=== PATIENT | female | born 1955 | race Caucasian/White ===

== ENCOUNTER 2023-03-28 18:17 | Emergency (ER) | payer MEDICARE, SELFPAY ==
[2023-03-28 18:28] VITALS: BP 160/78; PULSE 52; RESP 16; TEMP 36.5; O2SAT 100
--- NOTE | 2023-03-28 18:32 | ED.WOUNDLAC ---
HPI - Wound/Laceration General Chief Complaint: Wound/Laceration Stated Complaint: Animal scratch Time Seen by Provider: 03/28/23 18:32 Source: patient, RN notes reviewed and old records reviewed Mode of arrival: ambulatory Limitations: no limitations History of Present Illness HPI narrative: 67-year-old female presents to the [facility] with cat scratch from 2 days ago. States that is her house cat, up-to-date on immunizations. Her last Tdap was a year ago States she has been using her [facility] spray as well as Neosporin Related Data Home Medications Medication Instructions Recorded Confirmed ergocalciferol (vitamin D2) 1,250 1,250 mcg PO WEEKLY 03/28/23 03/28/23 mcg (50,000 unit) capsule levothyroxine 75 mcg tablet 75 mcg PO DAILY 03/28/23 03/28/23 (Synthroid) Allergies Allergy/AdvReac Type Severity Reaction Status Date / Time No Known Allergies Allergy Verified 03/28/23 18:40 Review of Systems Review of Systems: All systems reviewed & are unremarkable except as noted in HPI and below Constitutional: Constitutional: Reports no additional constitutional complaints Eyes: Eyes: Reports no additional eye complaints ENT: Reports system reviewed and no additional complaints, except as documented Cardiovascular: Cardiovascular: Reports no additional cardiovascular complaints, Denies chest pain and Denies dyspnea Respiratory: Respiratory: Reports no additional respiratory complaints, Denies chest congestion, Denies cough and Denies dyspnea Gastrointestinal: Gastrointestinal: Reports no additional gastrointestinal complaints, Denies abdominal pain, Denies nausea and Denies vomiting Musculoskeletal: Musculoskeletal: Reports no additional musculoskeletal complaints Integumentary/Breasts: Skin/Breast: Reports as per HPI and Reports wounds Neurologic: Reports system reviewed and no additional complaints, except as documented Psychiatric: Psychiatric: Reports no additional psychiatric complaints Allergic/Immunologic: Allergic/Immunologic: Reports no additional allergic/immunologic complaints PMFSH Past Medical History Medical History (Updated 03/28/23 @ 20:19 by Charis Grace APRN) Lymphoma Comments At the time of my signature, I reviewed and agree with the nursing past medical, surgical, social, and family history. There is no relevant family history pertinent to the patient complaint. Exam Const: General: cooperative, healthy appearing, comfortable, no acute distress, well developed, alert and well nourished Nutritional Appearance: well nourished Orientation/consciousness: patient oriented x3 Limitations: no limitations HENMT: Head: normal to inspection Ears: hearing grossly normal bilaterally and external ears normal Face/Nose/Sinus: Normal external nose present, Normal nares present, Normal nasal mucous membranes and turbinates present, normal facial exam and face symmetric Face and sinus: normal facial exam and face symmetric Eyes: General: appearance normal, both eyes and all related structures Alignment and Position: alignment normal Periorbital: periorbital findings normal Pupils: Equal, round and reactive pupils present EOM: EOMs intact bilaterally Neck: Neck: normal visual inspection, full ROM, no lymphadenopathy and no meningeal signs Chest: Chest palpation & inspection: normal inspection of the chest Resp: Effort & Inspection: normal respiratory effort and able to speak in complete sentences Auscultation: clear to auscultation bilaterally, no crackles, no rales, no rhonchi and no wheezes Cardio: Rate: regular rate Rhythm: regular rhythm Back/Spine/Pelvis: Cervical Spine: cervical ROM normal Skin: General skin exam: normal color and no rashes or lesions noted Lesions: no lesions Rashes: no rashes Other: Scratch and puncture wound noted to right mid forearm dorsal aspect. Scratches 5 cm puncture wound is just distal to scratch. Erythema of surrounding scrat
== END 2023-03-28 18:47 | disposition home or self-care (01) ==
PROVIDERS: Emergency Provider Nurse Practitioner
DX: S50.811A Abrasion of right forearm, initial encounter (principal); W55.03XA Scratched by cat, initial encounter; Z85.72 Personal history of non-Hodgkin lymphomas
CPT/HCPCS: 99213; G0463

== ENCOUNTER 2023-10-03 12:00 | Emergency (ER) | payer MEDICARE, SELFPAY ==
[2023-10-03 12:13] VITALS: BP 168/68; PULSE 57; RESP 16; TEMP 36.4; O2SAT 100
[2023-10-03 12:15] VITALS: BP 168/68; PULSE 57; RESP 16; TEMP 36.4; O2SAT 100
--- NOTE | 2023-10-03 12:28 | ED.EYEPROB ---
HPI - Eye Problem General Chief complaint: Eye Problems Stated complaint: EYE REDNESS/FACIAL INFECTION Source: patient, family, RN notes reviewed and old records reviewed Mode of arrival: ambulatory Limitations: no limitations History of Present Illness HPI Narrative: 67 year old female accompanied by daughter with complaints of right ear and pressure right side of her facial discomfort increased since yesterday. Patient reports that she woke up today and she noted blood shot eye with no visual changes Patient reports that she has not been feeling well for the past week or so, has thick white sinus mucous , discomfort to her right ear going to jaw. Patient reports that she has been taking some Luz for her symptoms. Patient reports that she is worn out she has been caring for her who had a heart transplant a year ago who has had many other problems and hospitalization since transplant. Patient reports that she has been sneezing a lot MD chief complaint: other (right ear pain and right facial pressure, blood shot right eye) Onset (ago): week(s) (at least a week with increased sinus drainage pressure to right ear and radiating to jaw.) Eye Symptoms: redness (blood shot eye right eye) Severity scale (1-10): 4 Treatments Prior to Arrival: other (Luz) Related Data Home Medications Medication Instructions Recorded Confirmed ergocalciferol (vitamin D2) 1,250 1,250 mcg PO WEEKLY 03/28/23 10/03/23 mcg (50,000 unit) capsule levothyroxine 75 mcg tablet 75 mcg PO DAILY 03/28/23 10/03/23 (Synthroid) mecobalamin (vitamin B12) 500 mcg See Rx Instructions .Route .COMPLEX 10/03/23 10/03/23 chewable tablet Allergies Allergy/AdvReac Type Severity Reaction Status Date / Time Sulfa (Sulfonamide Allergy Rash Verified 10/03/23 12:13 Antibiotics) Review of Systems Review of Systems: CONSTITUTIONAL: Denies malaise, chills, sweats, or fever. EYES: Denies visual changes, redness, or discharge. ENT: Reports rhinorrhea, congestion, right sinus pain, right otalgia and no sore throat. CARDIOVASCULAR: Denies chest pain, palpitations, or edema. RESPIRATORY: Reports no cough.? Denies dyspnea. GASTROINTESTINAL: Denies abdominal pain, nausea, vomiting, diarrhea SKIN: Denies rash or itching. MUSCULOSKELETAL: Denies myalgia. NEUROLOGIC: Denies headache. All systems reviewed & are unremarkable except as noted in HPI and below PMFSH Past Medical History Medical History (Updated 10/03/23 @ 16:15 by Kathie Yun NP) Lymphoma Non-Hodgkin lymphoma Surgical History Surgical History (Updated 10/03/23 @ 16:17 by Kathie Yun NP) H/O neck surgery History of cataract surgery bilateral History of cholecystectomy History of left knee replacement History of tubal ligation Social History Social History (Updated 10/03/23 @ 16:19 by Kathie Yun NP) Smoking status: Never smoker Substance use type: does not use Living arrangements: with family Gender identity (if verbalized by the patient): Female Comments At time of signature, agree with nursing past medical, surgical, social and family history. There is no relevant family history pertinent to the presenting complaint Exam Narrative: GENERAL: Well-appearing, well-nourished, and in no acute distress. HEAD: Normocephalic EYES: PERRLA, conjunctivae clear ENT: Nares clear, turbinates edematous and erythematous, white thick mucous discharge. Mucous membranes moist. Right ear required irrigation with some wax remaining, bilateral TM's pearly hyde with dull light reflex; no tragal tenderness. Oropharynx erythematous without lesions. Tonsils not enlarged and without exudate, no drooling, no hoarseness, no trismus, uvula midline.discomfort to right side of face reported NECK: Supple. No lymphadenopathy CHEST: Clear to auscultation, breath sounds equal. No wheezing, rhonchi, rales, or stridor. No respiratory distress, speaks in full
== END 2023-10-03 13:05 | disposition home or self-care (01) ==
PROVIDERS: Emergency Provider Registered Nurse
DX: H11.31 Conjunctival hemorrhage, right eye (principal); H61.21 Impacted cerumen, right ear; J01.00 Acute maxillary sinusitis, unspecified; Z96.652 Presence of left artificial knee joint; Z85.72 Personal history of non-Hodgkin lymphomas
CPT/HCPCS: 69209; 99213; A9270; G0463